=== PATIENT | female | born 1990 | race Caucasian/White ===

== ENCOUNTER 2025-08-26 11:01 | Day surgery (SDC) | payer MEDICAID, SELFPAY ==
--- NOTE | 2025-08-19 14:35 | PCM.HP.BLA ---
History and Physical Date of Admission: 08/26/25 HPI: The patient is a 35 year old female presenting for pre-operative visit. She is scheduled for Hysteroscopy D&C and polyp and or fibroid resection, for menrorrhagia, polyp and intramural fibroidson 08/26/25 Procedure discussed along with risks, benefits and complications. Other alternatives discussed for management. Consent form signed? Yes. PAST MEDICAL HISTORY PAST MEDICAL HISTORYDiagnosisDate•Myopia PAST SURGICAL HISTORY PAST SURGICAL HISTORYProcedureLateralityDate•LIGATE FALLOPIAN TUBE 2019•PAST SURGICAL HISTORY OF T & A age 15 CURRENT MEDICATIONS No current outpatient medications on file. No current facility-administered medications for this visit. ALLERGIES: [place] PERSONAL HISTORY: [SOCIAL HISTORY] [SOCIAL HISTORY] Social History Tobacco Use • Smoking status: Never • Smokeless tobacco: Never Vaping Use • Vaping status: Never Used Substance Use Topics • Alcohol use: Yes Alcohol/week: 2.3 standard drinks of alcohol Types: 1 Glasses of Wine (5oz), 1 Mixed Drinks per week • Drug use: No FAMILY HISTORY: FAMILY HISTORY FAMILY HISTORY ProblemRelationAge of Onset•Hair loss or thinningMother •other (pcos [Other])Sister •Hair loss or thinningSister •Coronary Artery DiseaseMaternal Grandfather bypass; no [place]•Hair loss or thinningMaternal Grandfather REVIEW OF SYMPTOMS: GENERAL: denies fevers or chills ENDOCRINOLOGY: has not been on steroids Cardiology : denies palpitations or chest pain Respiratory: denies SOB or cough Hematology: denies history of prolonged bleeding or easy bruising or VTE Allergy: Denies history of personal or family history of allergy to anesthesia PHYSICAL EXAMINATION: VITALS: Blood pressure 112/74, pulse 78, resp. rate 16, height 163.2 cm (5' 4.25"), weight 83.9 kg (185 lb), last menstrual period 08/15/2025, SpO2 98%. GENERAL: The patient is well nourished, well hydrated in no acute distress. , The patient is oriented to time, place, and person. NECK: Supple. No lynphadenopathy, normal thyroid, no thyromegaly. LUNGS: Clear to auscultation bilaterally. no wheezes, rhonchi or rales HEART: Regular rate and rhythm, Normal heart sounds, and No murmurs or gallops IMPRESSION: endometrial polyp, intramural fibroids, IUD insertion, menorrhagia with regular cycle PLAN: The risks/benefits/alternatives and personal involved for the planned Hysteroscopy D&C w/ polyp and or fibroid resection (d/w her many not be able to revmove fibroids), endometrial ablation and IUD insertion were reviewed with the patient. Her questions were answered to her satisfaction and she desires to proceed. Consent was signed. I reviewed with her postop instructions and expectations. I have reviewed and updated past medical and surgical history, medications and allergies Assessment & Plan Assessment/Plan (1) Endometrial polyp: (2) Intramural uterine fibroid: (3) Menorrhagia with regular cycle: (4) Encounter for IUD insertion:
--- NOTE | 2025-08-19 16:42 | PAT.ANESEVAL ---
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 When Was Last Pacemaker Check QUESTION #4 FULL TEXT: You/Your Family Experience fever (hyperthermia) with Anesthesia Last Oral Intake Last Oral intake: Last Oral Intake NPO since Meds taken in AM with sips of water? Meds patient instructed to take am of surgery PONV PONV - railroad inspector: PONV - railroad inspector Female Yes 08/19/25 14:03 HX of Motion Sickness No 08/19/25 14:03 HX of N/V After Surgery No 08/19/25 14:03 Non-Smoker Yes 08/19/25 14:03 Duration of Surgery greater No 08/19/25 14:03 than 60 minutes Number of Risk Factors 2 08/19/25 14:03 PONV Score Moderate Risk 08/19/25 14:03 Respiratory Assessment Respiratory Assessment - railroad inspector: Respiratory Tract Infection Hx - railroad inspector Hx Respiratory Tract Infection No 08/19/25 14:03 STOP Sleep Apnea STOP Sleep Apnea - railroad inspector: STOP Sleep Apnea - railroad inspector Hx Hypertension No 08/19/25 14:03 Hx Sleep Apnea No 08/19/25 14:03 CPAP BIPAP Do you snore loudly (louder No 08/19/25 14:03 than talking or can be heard Do you often feel tired/ No 08/19/25 14:03 fatigued/ sleepy during daytime? Has anyone observed you stop No 08/19/25 14:03 breathing during sleep? STOP Results Negative 08/19/25 14:03 QUESTION #5 FULL TEXT : Do you snore loudly (louder than talking or can be heard through closed doors)? 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 Specify any problems Hx of Preganancy in last 3 No 08/19/25 14:03 Months Nurse Filling Out Transfusion [email or web address] 08/19/25 14:03 & Questions: Date: 08/19/25 08/19/25 14:03 Time: 14:06 08/19/25 14:03 Patient unable to answer at this time (ie. confused, unrespo /Reproduction History /Reproductive History - railroad inspector: /Reproductive Hx- railroad inspector Hx Now No 08/19/25 14:03 Gestational Age (in weeks): EDC: Hx Hx Para Hx Section SAB No 08/19/25 14:03 PFSH Medical History Depression Anxiety Alcohol use Heartburn Smoker Home Medications Medication Instructions Recorded Last Taken Type NK 08/19/25 Unknown History Allergy/AdvReac Type Severity Reaction Status Date / Time almond AdvReac MOUTH Verified 08/19/25 14:02 TINGLES, ITCHY nickel AdvReac Rash Verified 08/19/25 14:02 Surgical History (Updated 08/19/25 @ 14:12 by Mauro Hernandez) History of tonsillectomy H/O bilateral salpingectomy Social History Smoking Status: Current every day smoker tobacco type: e-cigarettes Audit: Pertinent Findings Pertinent Findings Stress test pertinent findings: February 17, 2024. Patient achieved 10.4 metabolic equivalents. EKG changes did not meet criteria for ischemia. Normal exercise stress test at a high workload. Recommendation Anesthesia Recommendation Anesthesia recommendation: OPTIMIZED for anesthesia
[2025-08-26] VITALS (8 sets, daily range): BP systolic 92–113; BP diastolic 52–74; PULSE 54–77; RESP 16; TEMP 36.3–36.9; O2SAT 95–98; BMI 31.8
[2025-08-26] MEDS: metroNIDAZOLE 500 MG/100 ML BAG 100 MG IV (11:37)
[2025-08-26] MEDS: Lactated Ringers 1,000 ML 15 ML IV (11:37)
[2025-08-26] MEDS: Ketorolac 30 MG/ML Syringe IV (11:42)
--- NOTE | 2025-08-26 12:15 | PCM.PRE.AN2 ---
ASA Classification* ASA Classification ASA Classification: 2 (Smoker, anxiety, vapes, GERD) Assessment & Plan Anesthesia* Anesthesia Assessment Anesthesia Assessment: Discussed sedation and/or anesthesia options, risks, benefits, and alternatives with patient/parents/legal guardian/POA. Questions invited. The patient/parents/legal guardian/POA seems to understand and agrees to proceed with anesthesia plan. Reviewed the physical assessment, medical history, allergy history and patient home medications list prior to surgery/procedure/anesthetic and documented any changes. Performed airway and anesthesia risk assessments. Anesthesia Type Anesthesia Type: MAC History Source History Obtained from:: Patient and Chart Anesthesia Focused Assessment* Temperature: 98.4 F Pulse Rate: 70 Blood Pressure: 113/74 Respiratory Rate: 16 Pulse Ox: 97 Oxygen Delivery Method: Room Air Airway Assessment Mouth opens: >3 cm Mallampati Score: II Teeth Condition: Intact Neck Range of motion (ROM): Full ROM Labs Anesthesia Preop lab: CBC CHEMISTRY Glucose, (70-110) 92 mg/dL 06/06/16, 09:30 COAG Pre-Assessment Diagnosis/Proposed Procedure Planned Operative Procedure(s): HYSTEROSCOPY DIALTION AND CURETTAGE, ENDOMETERIAL ABLATION- LANCE, POSSIBLE IUD INSERTION Anesthesia History 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 When Was Last Pacemaker Check QUESTION #4 FULL TEXT: You/Your Family Experience fever (hyperthermia) with Anesthesia Last Oral Intake Last Oral intake: Last Oral Intake NPO since 18:30 08/26/25 11:34 Meds taken in AM with sips of water? Meds patient instructed to take am of surgery PONV PONV - child care sitter: PONV - child care sitter Female Yes 08/19/25 14:03 HX of Motion Sickness No 08/19/25 14:03 HX of N/V After Surgery No 08/19/25 14:03 Non-Smoker Yes 08/19/25 14:03 Duration of Surgery greater No 08/19/25 14:03 than 60 minutes Number of Risk Factors 2 08/19/25 14:03 PONV Score Moderate Risk 08/19/25 14:03 Height & Weight Height & Weight: Anesthesia: Height & Weight Height 5 ft 4 in 08/26/25 11:34 Weight: 84.2 kg 08/26/25 11:34 Body Mass Index (BMI) 31.8 08/26/25 11:34 Respiratory Assessment Respiratory Assessment - child care sitter: Respiratory Tract Infection Hx - child care sitter Hx Respiratory Tract Infection No 08/19/25 14:03 STOP Sleep Apnea STOP Sleep Apnea - child care sitter: STOP Sleep Apnea - child care sitter Hx Hypertension No 08/19/25 14:03 Hx Sleep Apnea No 08/19/25 14:03 CPAP BIPAP Do you snore loudly (louder No 08/19/25 14:03 than talking or can be heard Do you often feel tired/ No 08/19/25 14:03 fatigued/ sleepy during daytime? Has anyone observed you stop No 08/19/25 14:03 breathing during sleep? STOP Results Negative 08/19/25 14:03 QUESTION #5 FULL TEXT : Do you snore loudly (louder than talking or can be heard through closed doors)? 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 Specify any problems Hx of Preganancy in last 3 No 08/19/25 14:03 Months Nurse Filling Out Transfusion [email or web address] 08/19/25 14:03 & Questions: Date: 08/19/25 08/19/25 14:03 Time: 14:06 08/19/25 14:03 Patient unable to answer at this time (ie. confused, unrespo /Reproduction History /Reproductive History - child care sitter: /Reproductive Hx- child care sitter Hx Now No 08/19/25 14:03 Gestational Age (in weeks): EDC: Hx Hx Para Hx Section SAB No 08/19/25 14:03 Does the father of the baby or his family experience fever w Father of the baby Malignant Hypertension history comment Active Medications Active Medications: Current Medications Generic Name Dose Route Start Last Admin Trade Name Freq PRN Reason Stop Dose Admin Acetaminophen 1,000 mg 08/26/25 12:50 08/26/25 11:42 Acetaminophen 500 Mg Tablet PO 08/26/25 12:51 1,000 mg PREOP ONE Administration Metronidazole 500 mg in 100 mls @ 100 mls/hr 08/26/25 12:50 08/26/25 11:37 Flagyl IV 08/26/25 13:49 100 mls/hr INTRAOP ONE Administration Lactated Ringer's 1,000 mls @ 15 mls/hr 08/26/25 11:15 08/26/25 11:37 IV 15 mls/hr .Q48H ROXANA Administration Ketorolac Tromethamine 30 mg 08/26/25 12:50 08/26/25 11:42 Ketorolac 30 Mg/Ml Syringe IV 08/26/25 12:51 30 mg PREOP ONE Administration Levonorgestrel 1 each 08/26/25 12:50 Levonorgestrel Iud (Liletta) INTRA-UTER 08/26/25 12:51 X1 ONE PFSH Medical History Depression Anxiety Alcohol use Heartburn Smoker Home Medications Medication Instructions Recorded Last Taken Type NK 08/19/25 Unknown History Allergy/AdvReac Type Severity Reaction Status Date / Time almond AdvReac MOUTH Verified 08/26/25 11:33 TINGLES, ITCHY nickel AdvReac Rash Verified 08/26/25 11:33 Surgical History (Updated 08/19/25 @ 14:12 by Mauro Hernandez) History of tonsillectomy H/O bilateral salpingectomy Social History Smoking Status: Current every day smoker tobacco type: e-cigarettes Review of Systems (Anesthesia) ROS Narrative System reviewed and no additional complaints, except as documented. Physical Exam Const alert, oriented x3 and average body habitus Resp normal respiratory effort, normal air movement and clear to auscultation bilaterally Cardio regular rate, regular rhythm, no murmurs and diaphoretic
[2025-08-26] MEDS: Midazolam 2 MG/2 ML Syringe IV (12:28)
[2025-08-26] MEDS: Lidocaine 1% (5 ml sdv) 5 ML Vial IV (12:30)
--- NOTE | 2025-08-26 12:30 | EMB_PTH ---
PATIENT: ANDREAS RODNEY LOC: [facility] [place] U#:[id number] AGE/SX: 35/F ROOM: RE08/26/[address]: Dr. Porsche Joel MD : 1990 BED: DIS: 08/26/2025 SPEC #: [id number] RECD: 08/26/25 14:14 STATUS: BRENT REAdonis #: [id number] BORIS: 08/26/25 12:[address]: Porsche Joel DEPT: SURGICAL PATHOLOGY RECD BY: Yasmany Osullivan ENTERED: 08/26/25 14:59 SP TYPE: ENDOM BX/C OT DR: No Primary Care Phys Tissues: A - Endometrium, NOS Procedures: Surgery Specimen Level IV HEADER OPERATION: Hysteroscopy, D&C, polypectomy PRE-OP DIAGNOSIS: Endometrial polyp, intramural uterine fibroid, menorrhagia with regular cycle, encounter for IUD insertion TISSUE SUBMITTED: A- Endometrial curettings MICROSCOPIC DIAGNOSIS A. Endometrium, curettage, polypectomy: - Proliferative endometrium, endometrial polyp. - Few fragments of endocervical and squamous cervical mucosa. MICROSCOPIC DESCRIPTION Slides are reviewed. GROSS DESCRIPTION A. Received in formalin labeled with the patient's name and date of . Designated as " endometrial curettings" is a 5.7 x 2.8 x 0.3 cm aggregate of pink-red tissue fragments, mucoid material and clotted blood. Entirely submitted in 3 cassettes. MS [id number]
--- NOTE | 2025-08-26 12:35 | DCINST_ITS ---
Discharge Instructions DC O2, CPAP, BIPAP needs Home O2 Discharge instructions: No Dressing / Incision May resume sexual activity in: 2 weeks Lifting Restrictions: none Dressing / Incision Call your doctor if your incision/area has: Sudden Increased Bleeding and Foul Smelling Discharge Call your doctor if you observe: Fever of 101 or Higher and Using more than 1 pad per hour (for 2 hrs in a row) Follow Up Care Please Follow Up With: Porsche Joel MD When: You do not need a postop appointment. We will contact you with your pathology in approximately 2 weeks. Call [phone] or send a [employer] message with questions. Test Results: Test results from this visit will be discussed in further detail at your follow- up appointment, if applicable. Discharge Plan Admission Attending Provider: Porsche Joel Primary Care Provider: Care Physician,No Primary Instructions Print Language: Turkish Discharge Orders/Prescriptions Prescriptions: No Action NK Referrals / Follow Up: Care Physician,No Primary [Primary Care Provider, Medical] Disposition Disposition (needs filled in before D/C Order can be placed): Home, Self Care
[2025-08-26] MEDS: Lidocaine 1% /Epi 1:100 (20ml) 20 ML Vial (12:40)
[2025-08-26] MEDS: Levonorgestrel IUD (Liletta) 1 EACH INTRA-UTER (12:53)
[2025-08-26] MEDS: fentaNYL 100 MCG/2 ML Ampul IV (12:57)
--- NOTE | 2025-08-26 13:00 | OP.PCM_ITS ---
Operative Report (Standard) Operative Information Date of Procedure: 08/26/25 Pre-Operative Diagnosis: Intramural uterine fibroid, endometrial polyp, menorrhagia with regular cycle, IUD insertion Post-Operative Diagnosis: Intramural uterine fibroid, menorrhagia with regular cycle, IUD insertion Surgery/Procedure Performed: Hysteroscopy D&C with Endometrial ablation and Liletta IUD insertion manager customer service: Yes Apartment Rental Agent: Damon Vee Tasks completed by certified surgical first assistant: Retracting Additional curriculum assistant?: No Type of Anesthesia: MAC/Supplemental/Local RN Documented Start/Stop Times: Operation Date: 08/26/25 12:30 Case Time Into Pre-Op 08/26/25 11:14 Out of Pre-Op 08/26/25 12:21 Anesthesia Start 08/26/25 12:25 Into Room 08/26/25 12:25 Procedure Start 08/26/25 12:40 Procedure Start Time: 12:40 Procedure Stop Time: 12:57 Select all DRAINS/GRAFTS/IMPLANTS that apply: None Estimated Blood Loss: 10 Fluids Replaced: 700 cc LR Specimen collected: Yes Description of specimen(s) removed: endometrial curettings Description of surgery: The patient was taken to the OR where she was prepped and draped in dorsal lithotomy position. The weighted speculum was placed in the vagina and the anterior lip of the cervix was grasped with a single-tooth tenaculum. A paracervical block was administered with 1% lidocaine with 1-100,000 epinephrine solution. The cervix was dilated serially with Hegar dilators. The Symphion hysteroscope was placed into the uterine cavity and the above findings were noted. Bilateral tubal ostia were identified. The uterus sounded to 9.5cm and the cervical length was 4.5cm. The endometrial cavity length was 5cm. The hysteroscope was removed. A gentle sharp curettage was done of the uterine cavity. The specimen was handed off and sent to pathology. The Nabila device was set to 5 cm. The instrument was then seated into the endometrial cavity and the indicator was in the green. The cervical seal balloon was inflated and the uterine integrity test was passed. The ablation procedure was initiated and completed without interruption. During the ablation procedure gentle traction was held on the tenaculum and the Nabila device was held up against the uterine fundus. When the ablation procedure was completed the Nabila was removed. The Liletta IUD was inserted in the usual sterile fashion and the strings cut to 2 cm. The tenaculum was removed and the tenaculum site was noted to be hemostatic. All sponge and needle counts were correct. A vaginal sweep was performed by me. The patient was awakened and taken to the recovery room in stable condition. Calculated hysteroscopic fluid deficit is 350 cc of normal saline Surgical Findings: Normal cervix and vagina, lush endometrium, no discrete polyps or fibroids visual in the endometrial cavity, both tubal ostia are noted. Complications Complications: No Admit VTE Documentation VTE Present on Admission: No VTE Mechan Device Prophylaxis: [facility] [place] VTE Pharm Prophylaxis ordered?: No
--- NOTE | 2025-08-26 13:08 | PCM.POST.ANE ---
Anesthesia: Postop Eval I Current Vital Signs Temperature: 97.3 F Pulse Rate: 77 Blood Pressure: 94/54 Respiratory Rate: 16 Pulse Ox: 95 Oxygen Delivery Method: Room Air Assessment Airway patent: Yes Spontaneous unlabored respirations: Yes Mental status: Awake and Calm nausea: No Vomiting: No Anesthesia Complication: No Fluid Hydration Crystalloid volume administer (ml): 700 Total IV fluid infused: 700 Progress Note Anesthesia document: Postop Eval 1 completed: Yes
--- NOTE | 2025-08-26 13:51 | POSTOPAN2_ITS ---
Anesthesia Postop Eval I Sum Postop Eval Completion status Anesthesia document: Postop Eval 1 completed: Yes Anesthesia Postop Eval I Summary Anesthesia Postop Eval I Summary: Anesthesia Postop Eval I: Assessment Summary Airway patent Yes 08/26/25 13:09 STAFF RESPIRATORY THERAPIST.[email or web address] Spontaneous unlabored Yes 08/26/25 13:09 STAFF RESPIRATORY THERAPIST.[email or web address] respirations Mental status Awake,Calm 08/26/25 13:09 STAFF RESPIRATORY THERAPIST.[email or web address] nausea No 08/26/25 13:09 STAFF RESPIRATORY THERAPIST.GDOTT Vomiting No 08/26/25 13:09 STAFF RESPIRATORY THERAPIST.[email or web address] Anesthesia Postop Eval I: Fluid Summary Crystalloid volume administer 700 08/26/25 13:09 STAFF RESPIRATORY THERAPIST.GDOTT (ml) Colloids volume administered ( ml) Blood Product volume administered (ml) Total IV fluid infused 700 08/26/25 13:09 STAFF RESPIRATORY THERAPIST.[email or web address] Anesthesia Postop Eval I: Summary Notes Anesthesia Complication No 08/26/25 13:09 STAFF RESPIRATORY THERAPIST.[email or web address] Anesthesia Complication Comment: Post-operative progress note Anesthesia: Postop Eval II Evaluation Mental status: Awake Pain Level: 0 nausea: No Vomiting: No Complications Anesthesia Complication: No
--- NOTE | 2025-08-26 13:51 | PCM.POSTANE2 ---
Anesthesia Postop Eval I Sum Postop Eval Completion status Anesthesia document: Postop Eval 1 completed: Yes Anesthesia Postop Eval I Summary Anesthesia Postop Eval I Summary: Anesthesia Postop Eval I: Assessment Summary Airway patent Yes 08/26/25 13:09 [email or web address] Spontaneous unlabored Yes 08/26/25 13:09 [email or web address] respirations Mental status Awake,Calm 08/26/25 13:09 [email or web address] nausea No 08/26/25 13:09 [email or web address].[email or web address] Vomiting No 08/26/25 13:09 [email or web address] Anesthesia Postop Eval I: Fluid Summary Crystalloid volume administer 700 08/26/25 13:09 [email or web address] (ml) Colloids volume administered ( ml) Blood Product volume administered (ml) Total IV fluid infused 700 08/26/25 13:09 [email or web address] Anesthesia Postop Eval I: Summary Notes Anesthesia Complication No 08/26/25 13:09 [email or web address] Anesthesia Complication Comment: Post-operative progress note Anesthesia: Postop Eval II Evaluation Mental status: Awake Pain Level: 0 nausea: No Vomiting: No Complications Anesthesia Complication: No
== END 2025-08-26 14:01 | disposition home or self-care (01) ==
LOC: SDC 11:06 → AC 11:08
PROVIDERS: Referring Provider Obstetrics & Gynecology; Visit Provider Obstetrics & Gynecology
DX: N84.0 Polyp of corpus uteri (principal); Z30.430 Encounter for insertion of intrauterine contraceptive device; N92.0 Excessive and frequent menstruation with regular cycle; K21.9 Gastro-esophageal reflux disease without esophagitis; F17.210 Nicotine dependence, cigarettes, uncomplicated
CPT/HCPCS: 58563; 58300; 00952; 88305; J2405